=== PATIENT | female | born 1995 | race Caucasian/White ===

== ENCOUNTER 2018-04-23 19:03 | Outpatient (CLI) | payer OTHER ==
[2018-04-23] MEDS ORDERED: ACETAMINOPHEN IV (For NPO) 1,000 MG in EMPTY BAG 1 BAG IVPB STA (19:23)
[2018-04-23] MEDS ORDERED: LACTATED RINGERS 1,000 ML IV SCH (19:30)
[2018-04-23 19:37] LABS: Appearance,Urine Clear (Clear); Bilirubin,Urine Negative (Negative); Blood,Urine Negative (Negative); Color,Urine Light Yellow; Glucose,Urine (UA) Negative (Negative); Ketones,Urine Negative (Negative); Leukocyte Esterase,Urine Negative (Negative); Nitrite,Urine Negative (Negative); Protein,Urine Negative (Negative); Specific Gravity,Urine 1.009 (1.001-1.035); Urobilinogen,Urine <2.0 mg/dL (<2.0)
[2018-04-23 21:53] VITALS: BP 131/72; PULSE 116; RESP 16; TEMP 97.9
--- NOTE | 2018-06-20 09:38 | P.MSEPDOC ---
Presenting Problems - Arrival Data Date of Arrival on Unit: 04/23/18 Time of Arrival on Unit: 19:03 Mode of Transport: Ambulatory Vital Signs - Temperature Temperature: 97.9 F Temperature Source: Temporal Artery Scan - Pulse Right Brachial Pulse Rate: 116 Pulse Assessment Method: Automatic Cuff - Respirations Respiratory Rate: 16 Oxygen Delivery Method: Room Air O2 Sat by Pulse Oximetry: 97 - Blood Pressure Right Arm Blood Pressure: 131/72 Blood Pressure Mean: 91 Blood Pressure Source: Automatic Cuff Medical Screen Scoring (Post) - Cervical Exam Dilation: Exam Deferred Effacement: Exam Deferred Membranes: Intact - Uterine Contractions Frequency: N/A Duration: N/A Intensity: N/A - Maternal Vital Signs Maternal Temperature: N/A Maternal Respirations: N/A - Maternal Trauma Maternal Trauma: N/A - Assessment Heart Rate: 140 Heart Rate - NICHD Category: Category I (Normal) = 0 NST: Reactive Position: N/A - Total Score Total Score (Post): 0 - Post Treatment Level of Risk Post Treatment Level of Risk: Low (0-5) Physician Notification (Post) - Physician Notified Physician Notified Date: 04/23/18 Physician Notified Time: 19:21 Spoke With: Rodolfo New Order Received: Yes - Notification Comment Comment: UA sent, pt to follow up with Dr. White tomorrow as scheduled. Script for maternity belt given. Disposition - Disposition OB Disposition: Discharge to home, Written follow up instructions reviewed Discharge Date: 04/23/18 Discharge Time: 21:23 I agree with the RN Medical Screening Exam: Yes Risk & Benefit of care provided described in d/c instruction: Yes Diagnosis: UNSPECIFIED ABDOMINAL PAIN
== END 2018-04-23 21:23 | disposition home or self-care (01) ==
LOC: FBPOP 19:03
PROVIDERS: ATTEND Obstetrics & Gynecology Obstetrics
DX: O99.89 Other specified diseases and conditions complicating pregnancy, childbirth and the puerperium (principal); R10.9 Unspecified abdominal pain; Z3A.00 Weeks of gestation of pregnancy not specified
CPT/HCPCS: 99214; 96361; 96365; 81003; J0131

== ENCOUNTER 2018-06-24 11:45 | Outpatient (CLI) | payer OTHER ==
[2018-06-24 12:10] VITALS: BP 119/56; PULSE 108; RESP 16; TEMP 97
--- NOTE | 2018-07-01 09:49 | P.MSEPDOC ---
Presenting Problems - Arrival Data Date of Arrival on Unit: 06/24/18 Time of Arrival on Unit: 11:35 Mode of Transport: Ambulatory - Complaint OB-Reason for Admission/Chief Complaint: Vaginal Bleeding, Pain Medical History - Information : 2 Para: 1 Term: 1 : 0 Abortions: Spontaneous or Elective: 1 Number of Living Children: 1 - Gestational Age Gestational Age by CARLOS (wks/days): 36 Weeks and 3 Days Review of Systems - Review of Systems Constitutional: No problems Breast: No problems ENT: No problems Cardiovascular: No problems Respiratory: No problems Gastrointestinal: No problems Genitourinary: No problems Musculoskeletal: No problems Neurological: No problems Skin: No problems Vital Signs - Temperature Temperature: 97.0 F Temperature Source: Oral - Pulse Pulse Oximetery Pulse Rate: 108 Pulse Assessment Method: Automatic Cuff - Respirations Respiratory Rate: 16 - Blood Pressure Right Arm Sitting Blood Pressure: 119/56 Blood Pressure Mean: 77 Blood Pressure Source: Automatic Cuff Medical Screen Scoring (Pre) - Cervical Exam Dilation: Exam Deferred Effacement: Exam Deferred Membranes: Intact - Uterine Contractions Frequency: > 5 minutes apart = 1 Duration: N/A Intensity: N/A - Maternal Vital Signs Maternal Temperature: N/A Maternal Blood Pressure: N/A Signs of Preeclampsia: N/A Maternal Respirations: N/A - Pain Assessment Pain Location and Character: Left, Lower, Abdomen Pain Scale Used: Numeric (1 - 10) Pain Intensity: 5 Pain Description: *Acute, Cramping Pain Frequency: Intermittent Pain Duration: 1 Pain Duration Units: Minutes Pain Behavior: None Exhibited Pain Aggravating Factors: None Non-Pharmacological Interventions: Distraction, Emotional/Spiritual Support, Environmental Control - Maternal Trauma Maternal Trauma: N/A - Assessment Baseline FHR: 155 Heart Rate - NICHD Category: Category I (Normal) = 0 NST: Reactive Position: N/A Station: N/A - Total Score Total Score (Pre): 1 - Level of Risk Level of Risk: Low (0-5) Medical Screen Scoring (Post) - Cervical Exam Dilation: 1-3 cm = 1 Membranes: Intact - Uterine Contractions Frequency: > 5 minutes apart = 1 Duration: > 40 seconds = 2 - Maternal Vital Signs Maternal Temperature: N/A Maternal Blood Pressure: N/A Signs of Preeclampsia: N/A Maternal Respirations: N/A - Pain Assessment Pain Location and Character: Left, Lower, Abdomen Pain Scale Used: Numeric (1 - 10) Pain Intensity: 5 Pain Description: *Acute, Cramping Pain Radiation Location: no Pain Frequency: Intermittent Pain Duration: 1 Pain Duration Units: Minutes Pain Behavior: None Exhibited Pain Aggravating Factors: None Non-Pharmacological Interventions: Distraction, Emotional/Spiritual Support, Environmental Control, Reduce Environmental Stimuli - Maternal Trauma Maternal Trauma: N/A - Assessment Heart Rate: 155 Heart Rate - NICHD Category: Category I (Normal) = 0 NST: Reactive Position: N/A Station: N/A - Total Score Total Score (Post): 4 - Post Treatment Level of Risk Post Treatment Level of Risk: Low (0-5) Physician Notification (Post) - Physician Notified Physician Notified Date: 06/24/18 Physician Notified Time: 12:25 Physician/Practitioner Notified:: Dr White Spoke With: Dr White New Order Received: Yes Disposition - Disposition OB Disposition: Physician follow up in office, Discharge to home, Written follow up instructions reviewed Discharge Date: 06/24/18 Discharge Time: 12:35 I agree with the RN Medical Screening Exam: Yes Risk & Benefit of care provided described in d/c instruction: Yes Diagnosis: FALSE LABOR BEFORE 37 COMPLETED WEEKS OF GEST, THIRD TRI
== END 2018-06-24 12:35 | disposition home or self-care (01) ==
LOC: FBPOP 11:45
PROVIDERS: ATTEND Obstetrics & Gynecology
DX: O47.03 False labor before 37 completed weeks of gestation, third trimester (principal); Z3A.36 36 weeks gestation of pregnancy
CPT/HCPCS: 59025; 99213

== ENCOUNTER 2018-07-16 05:58 | Inpatient (IN) | payer BC, OTHER ==
[2018-07-16] MEDS ORDERED: METHYLERGONOVINE 0.2 MG/ML 1 ML AMP IM PRN (06:04)
[2018-07-16] MEDS ORDERED: OXYTOCIN 10 UNIT/ML 1 ML VIAL IM PRN (06:04)
[2018-07-16] MEDS ORDERED: CARBOPROST TROMETHAMINE 250 MCG/ML 1 ML AMP IM PRN (06:04)
[2018-07-16] MEDS ORDERED: TERBUTALINE 1 MG/ML VIAL SQ PRN (06:04)
[2018-07-16] MEDS ORDERED: LIDOCAINE 0.5% (PF) 5 MG/ML (50 ML SDV) SQ PRN (06:04)
[2018-07-16 06:09] VITALS: BMI 30.9
[2018-07-16] MEDS: LACTATED RINGERS 1,000 ML IV SCH ×2 (06:11→09:55)
[2018-07-16] MEDS ORDERED: OXYTOCIN 20 UNITS/1000 ML NS 1,000 ML IV SCH (06:15)
[2018-07-16] MEDS ORDERED: LACTATED RINGERS 1,000 ML IV SCH (06:15)
[2018-07-16 06:23] LABS: Basophils % (A) 0 %; Eosinophils # (A) 0.1 k/uL (0-0.7); Eosinophils % (A) 1 %; HCT 35.1 % (34.0-46.0); HGB 11.7 gm/dL (11.4-16.0); Lymphocytes % (A) 20 %; MCH 28.6 pg (25.0-35.0); MCHC 33.4 g/dL (31.0-37.0); MCV 85.4 fL (80.0-100.0); Mean Platelet Volume 8.6; Monocytes # (A) 0.5 k/uL (0-1.0); Monocytes % (A) 5 %; Neutrophils # (A) 7.3 k/uL (1.3-7.7); Neutrophils % (A) 72 %; Platelet Count 172 k/uL (150-450); RDW 13.4 % (11.5-15.5); WBC 10.3 k/uL (3.8-10.6)
[2018-07-16] MEDS ORDERED: PENICILLIN G POTASSIUM 5,000,000 UNIT in DEXTROSE 5% IN WATER 100 ML IVPB STA ×2 (07:45)
--- NOTE | 2018-07-16 07:48 | P.HPOB ---
History of Present Illness H&P Date: 07/16/18 This is a 22-year-old white female 2 para 1001 EDC 07/18/2018 at 39-5/7 weeks. Patient presents today for induction with favorable multiparous cervix. Fetus has been active. She states she believes she broke her water at 3:00 this morning, clear fluid. She is having mild uterine contractions at this time. Past medical history is negative. Past surgical history is significant for tonsillectomy, wisdom teeth extraction. Current medications vitamins daily. ALLERGIES none known. Family history is unremarkable. Past obstetric history significant for normal spontaneous vaginal delivery of liveborn male infant in 2014, 7 lbs. 4 oz. Social history patient is , boyfriend is involved in the . She denies tobacco alcohol or drug use. history is significant for blood type O+, rubella status immune. Positive group B strep in the urine. Hepatitis B surface antigen, HIV testing, urine culture, gonorrhea and reculture of chlamydia all negative. One-hour Glucola 109. Ultrasound significant for a succenturiate anterior lobe on a posterior placenta. On exam this is a pleasant white female, 5 foot 5 inches, 186 pounds, blood pressure 145/79 and admission, patient is afebrile. The general physical exam is within normal limits. Cervix is 3 cm dilated, 60% effaced, -2 station, vertex presentation. Artificial amniorrhexis of a large 4 bag reveals clear fluid. heart rate is in the 140s with frequent accelerations, consistent with reactive NST. Contractions are occurring approximately every 6 minutes apart of mild intensity. Impression: 39-5/7 weeks intrauterine , positive group B strep in the urine noted, succenturiate lobe on the placenta also noted. Here for induction of labor, all signs currently reassuring. Plan continue oxytocin per hospital protocol. Continue close maternal and surveillance. Antibiotics for group B strep protocol. Special attention to the second stage of labor for Satellite lobe of placenta. Anticipate normal spontaneous vaginal delivery. Review of Systems Constitutional: Reports as per HPI Past Medical History Past Medical History: No Reported History History of Any Multi-Drug Resistant Organisms: None Reported Past Surgical History: No Surgical Hx Reported Past Anesthesia/Blood Transfusion Reactions: Postoperative Nausea & Vomiting ( PONV) Past Psychological History: No Psychological Hx Reported Smoking Status: Never smoker Past Alcohol Use History: None Reported Past Drug Use History: None Reported - Past Family History Mother Family Medical History: No Reported History Medications and Allergies Home Medications Medication Instructions Recorded Confirmed Type Pnv No.95/Ferrous Fum/Folic AC 1 tab PO DAILY 06/24/18 07/16/18 History [ Multivitamin Tablet] Allergies Allergy/AdvReac Type Severity Reaction Status Date / Time No Known Allergies Allergy Verified 06/24/18 11:58 Exam Vital Signs Temp Pulse Resp BP 07/16/18 06:04 98.3 F 113 H 18 145/79 Intake and Output 07/15/18 07/16/18 07/16/18 22:59 06:59 14:59 Other: Weight 84.368 kg As per HPI please Results Result Diagrams: 07/16/18 06:15 Assessment and Plan Assessment: 39-5/7 weeks intrauterine , here for induction of labor. Positive group B strep status. Succenturiate lobe placenta noted. All signs currently reassuring. Plan: Again, close maternal and surveillance. Oxytocin per hospital protocol. Penicillin G per protocol. Anticipate normal spontaneous vaginal delivery. Time with Patient: Less than 30
[2018-07-16] MEDS ORDERED: ROPIVACAINE 100 MG, fentaNYL (PF) 200 MCG in SODIUM CHLORIDE 0.9% 76 ML EPIDURAL ONE (10:36)
[2018-07-16] MEDS: PENICILLIN G POTASSIUM 2,500,000 UNIT in DEXTROSE 5% IN WATER 100 ML IVPB SCH ×4 (12:28→17:09)
[2018-07-16] MEDS ORDERED: BENZOCAINE/MENTHOL SPRAY 1 GM/SPRAY AEROSOL TOPICAL PRN (13:44)
[2018-07-16] MEDS ORDERED: diphenhydrAMINE 50 MG CAP PO PRN (13:44)
[2018-07-16] MEDS ORDERED: diphenhydrAMINE 50 MG/ML 1 ML VIAL IVP PRN ×2 (13:44)
[2018-07-16] MEDS ORDERED: ZOLPIDEM 5 MG TAB PO PRN (13:44)
[2018-07-16] MEDS ORDERED: ACETAMINOPHEN TAB 325 MG TAB PO PRN (13:44)
[2018-07-16] MEDS ORDERED: LANOLIN CREAM 5 GM TUBE TOPICAL PRN (13:44)
[2018-07-16] MEDS ORDERED: SIMETHICONE 80 MG CHEWABLE PO PRN (13:44)
[2018-07-16] MEDS ORDERED: HYDROCORTISONE 2.5% RECTAL CREAM 30 GM TUBE RECTAL PRN (13:44)
[2018-07-16] MEDS ORDERED: diphenhydrAMINE 25 MG CAP PO PRN (13:44)
[2018-07-16] MEDS ORDERED: WITCH HAZEL 1 EACH MED..PAD TOPICAL PRN (13:44)
--- NOTE | 2018-07-16 13:44 | P.PROBDLV ---
Vaginal Delivery Note - . Vaginal Delivery Note: This is a 22-year-old white female 2 para 1001 EDC 07/18/2018 at 39-5/7 weeks' gestation. Patient presents for induction with favorable cervix. She believes her water broke at 02 100 this morning, clear fluid. Amnio sure testing was positive in the triage area. remarkable for group B strep positive, blood type O positive, rubella status immune. Please see admitting history and physical for details. Patient was admitted, artificial amniorrhexis of a fore bag revealed clear fluid with vernix. heart tones were reassuring throughout the first and second stages of labor. Antibiotics were given for history of positive group B strep culture in the urine. Patient requested and received an epidural. She progressed well through the first stage of labor and was judged to be completely dilated. Perineal body was prepped and draped in the second stage of labor commenced. With excellent maternal expulsive efforts, for 22 minutes, the patient pushed. Ultimately the head delivered occiput anterior and restituted accordingly. There was no nuchal cord noted. The right or anterior shoulder was delivered from underneath the pubic symphysis at which time the oropharynx, nasopharynx, and external nares were all bulb suctioned on the perineal body. Patient was officially delivered of a liveborn male at 1321 hrs. Umbilical cord was doubly clamped and ligated, he was handed to waiting nurses for evaluation where scores of 9 and 9 at one and 5 minutes respectively were given. Uterus is massaged. Placenta delivers spontaneously, at 1327 hours. It is noted to be intact, succenturiate lobe is identified. It is sent to pathology for evaluation. Uterus is massaged. Inspection of the cervix, vagina, perineum , periurethral, and perirectal areas revealed no lacerations and no defects. No suturing material was deemed necessary. All sponge needle and enhancement counts are correct at the end of the procedure. weighs 8 lbs. 8 oz. or 3865 g. Patient and her are requesting circumcision further son.
[2018-07-16] MEDS: SENNOSIDES-DOCUSATE SODIUM 1 EACH TAB PO SCH (20:16)
[2018-07-17] MEDS: IBUPROFEN 600 MG TAB PO PRN ×2 (04:10→10:10)
[2018-07-17 07:39] VITALS: BP 127/70; PULSE 91; RESP 17; TEMP 98
--- NOTE | 2018-07-17 07:47 | P.DS ---
Providers Date of admission: 07/16/18 05:58 Expected date of discharge: 07/17/18 Attending physician: Jacy White Primary care physician: [facility] Course: This is a 22-year-old white female 2 para 1001 EDC 07/18/2018 at 39-5/7 weeks' gestation. Patient presented for induction with favorable cervix. Group B strep positive in the urine. Blood type O positive, rubella status immune. Please see my dictated history and physical for details. Artificial amniorrhexis revealed clear fluid. Penicillin G was given, 2 units total. Epidural was placed per her request. Patient went on to deliver vaginally a liveborn male with scores of 9 and 9 at one and 5 minutes respectively. Infant weighed 3865 g or 8 lbs. 8 oz. She did well, estimated blood loss 300 mL's. No suturing was deemed necessary of the perineal body. Please see my dictated delivery note for details. This morning the patient is doing well. She is voiding, ambulating and passing flatus without difficulty. She is afebrile and the fundus is firm, nontender, midline. Pulse is 91. Extremities reveal +1 edema. Chest is clear in all leonard. Breasts are not engorged. [place] is doing well. Circumcision has been performed. Patient is being discharged home today in very good condition. She will follow- up in the office with me in 6 weeks. I have reminded her no intercourse, tampons or douching. We have briefly discussed options for contraception and we will discuss this further in the office. She will continue taking her vitamin daily. I have given her a prescription for a double electric breast pump per her request. She will call with any fevers shakes or chills, foul smelling or copious lochia, with any large blood clots, with any pain not alleviated by [id number] Motrin Advil or Aleve, or indeed with any concerns. Patient Condition at Discharge: Good Plan - Discharge Summary Discharge Rx Participant: No New Discharge Prescriptions: No Action Pnv No.95/Ferrous Fum/Folic AC [ Multivitamin Tablet] 1 tab PO DAILY Discharge Medication List Pnv No.95/Ferrous Fum/Folic AC [ Multivitamin Tablet] 1 tab PO DAILY [History] Follow up Appointment(s)/Referral(s): Jacy White MD [STAFF PHYSICIAN] - 6 Weeks Discharge Disposition: HOME SELF-CARE
[2018-07-17 08:10] LABS: Basophils % (A) 0 %; Eosinophils % (A) 0 %; Lymphocytes # (A) 1.7 k/uL (1.0-4.8); Lymphocytes % (A) 11 %; MCHC 33.4 g/dL (31.0-37.0); MCV 86.9 fL (80.0-100.0); Mean Platelet Volume 8.4; Monocytes # (A) 0.6 k/uL (0-1.0); Monocytes % (A) 4 %; Neutrophils % (A) 84 %; Platelet Count 152 k/uL (150-450); RBC 3.34 m/uL (3.80-5.40); RDW 13.6 % (11.5-15.5); WBC 15.5 k/uL (3.8-10.6)
[2018-07-17 08:11] LABS: HGB 9.7 gm/dL (11.4-16.0)
[2018-07-17] MEDS: SENNOSIDES-DOCUSATE SODIUM 1 EACH TAB PO SCH (09:53)
== END 2018-07-17 14:45 | disposition home or self-care (01) | DRG 807 ==
LOC: 4FBP 05:58
PROVIDERS: ADMIT Obstetrics & Gynecology; ATTEND Obstetrics & Gynecology
PROC: 10E0XZZ Delivery of Products of Conception, External Approach (ICD-10-PCS; principal; 2018-07-16)
PROC: 00HU33Z Insertion of Infusion Device into Spinal Canal, Percutaneous Approach (ICD-10-PCS; 2018-07-16)
PROC: 3E0R3BZ Introduction of Anesthetic Agent into Spinal Canal, Percutaneous Approach (ICD-10-PCS; 2018-07-16)
PROC: 10907ZC Drainage of Amniotic Fluid, Therapeutic from Products of Conception, Via Natural or Artificial Opening (ICD-10-PCS; 2018-07-16)
PROC: 3E033VJ Introduction of Other Hormone into Peripheral Vein, Percutaneous Approach (ICD-10-PCS; 2018-07-16)
DX: O99.824 Streptococcus B carrier state complicating childbirth (principal); O43.193 Other malformation of placenta, third trimester; Z37.0 Single live birth; Z3A.39 39 weeks gestation of pregnancy
CPT/HCPCS: 85025; 86850; 86900; 86901; 88307

== ENCOUNTER 2020-01-16 20:57 | Emergency (ER) | payer BC, OTHER ==
[2020-01-16 21:02] VITALS: RESP 18
[2020-01-16 21:57] LABS: Appearance,Urine Cloudy (Clear); Bilirubin,Urine Negative (Negative); Blood,Urine Large (Negative); Color,Urine Yellow; Glucose,Urine (UA) Negative (Negative); Ketones,Urine Negative (Negative); Leukocyte Esterase,Urine Moderate (Negative); Mucus,Urine Rare /hpf; Nitrite,Urine Negative (Negative); PH, Urine 6.5 (5.0-8.0); Protein,Urine Trace (Negative); RBC,Urine 102 /hpf (0-5); Specific Gravity,Urine 1.022 (1.001-1.035); Squamous Epithelial Cell,Urine 10 /hpf (0-4); Urobilinogen,Urine <2.0 mg/dL (<2.0); WBC,Urine 8 /hpf (0-5)
--- NOTE | 2020-01-16 22:27 | ED ---
Female Urogenital HPI - General Chief complaint: Vaginal Bleeding Stated complaint: Cramping/bleeding 5-6wks preg Time Seen by Provider: 01/16/20 21:12 Source: patient Mode of arrival: ambulatory Limitations: no limitations - History of Present Illness Initial comments: patient is a 24-year-old female presenting to emergency Department with complaints of vaginal bleeding and cramping since yesterday. She is currently 5 to 6 weeks , she had 2 positive tests at home. She is . Her [employer] is Dr. White. She states she had some mild bleeding that started yesterday but it has been continuous throughout today. She is also having some lower abdominal cramping. She denies any recent fever or chills. She denies history of abdominal surgeries. She admits to some mild nausea but no vomiting, no diarrhea. She denies chest pain or shortness of breath. She has no further complaints at this time. Upon arrival to the ER, her vital signs are stable. - Related Data Home Medications Medication Instructions Recorded Confirmed Pnv No.95/Ferrous Fum/Folic AC 1 tab PO DAILY 06/24/18 07/16/18 [ Multivitamin Tablet] Allergies Allergy/AdvReac Type Severity Reaction Status Date / Time No Known Allergies Allergy Verified 01/16/20 21:02 Review of Systems ROS Statement: Those systems with pertinent positive or pertinent negative responses have been documented in the HPI. ROS Other: All systems not noted in ROS Statement are negative. Past Medical History Past Medical History: No Reported History History of Any Multi-Drug Resistant Organisms: None Reported Past Surgical History: No Surgical Hx Reported Past Anesthesia/Blood Transfusion Reactions: Postoperative Nausea & Vomiting (PONV) Past Psychological History: No Psychological Hx Reported Past Alcohol Use History: None Reported Past Drug Use History: None Reported - Past Family History Mother Family Medical History: No Reported History General Exam - General Exam Comments Initial Comments: GENERAL: Patient is well-developed and well-nourished. Patient is nontoxic and in no acute distress. HEAD: Atraumatic, normocephalic. EYES: Pupils equal round and reactive to light, extraocular movements intact, sclera anicteric, conjunctiva are normal. Eyelids were unremarkable. ENT: TMs normal, nares patent, oropharynx clear without exudates. Moist mucous membranes. NECK: Normal range of motion, supple without lymphadenopathy or JVD. LUNGS: Unlabored respirations. Breath sounds clear to auscultation bilaterally and equal. No wheezes rales or rhonchi. HEART: Regular rate and rhythm without murmurs, rubs or gallops. ABDOMEN: Mild pain with palpation of the lower abdomen. Soft, normoactive bowel sounds. No guarding, no rebound. No masses appreciated. :Declined vaginal exam. MUSCULOSKELETAL: Normal extremities with adequate strength and normal range of motion, no pitting or edema. No clubbing or cyanosis. NEUROLOGICAL: Normal speech, normal gait. PSYCH: Normal mood, normal affect. SKIN: Warm, Dry, normal turgor, no rashes or lesions noted. Limitations: no limitations Course Vital Signs 01/16/20 20:59 Temperature 98.2 F Pulse Rate 69 Respiratory 18 Rate O2 Sat by Pulse 100 Oximetry Medical Decision Making - Medical Decision Making patient is a 24-year-old female here for vaginal bleeding and cramping that started yesterday. She believes she is 5-6 weeks . Patient is declining all blood work including beta hCG levels,as well as a vaginal exam. S he only wanted an ultrasound. She is . [employer] is Dr. White. Patient's urine did show significant blood, urine hCG was not detected. ultrasound shows no evidence of IUP, and her uterus was empty, no signs of ectopic, no other abnormality seen. I discussed these findings with the patient. She will follow-up with her doctor. She may take Tylenol or Motrin for discomfort. She is agreement with this plan of care. She is stable for discharge. Return parameters were discussed with the patient she verbalized understanding. Case discussed with Dr. Mccray. - Lab Data Lab Results 01/16/20 01/16/20 Range/Units 21:47 21:47 Urine Color Yellow Urine Appearance Cloudy H (Clear) Urine pH 6.5 (5.0-8.0) Ur Specific [place] 1.022 (1.001-1.035) Urine Protein Trace H (Negative) Urine Glucose (UA) Negative (Negative) Urine Ketones Negative (Negative) Urine Blood Large H (Negative) Urine Nitrite Negative (Negative) Urine Bilirubin Negative (Negative) Urine Urobilinogen <2.0 (<2.0) mg/dL Ur Leukocyte Esterase Moderate H (Negative) Urine RBC 102 H (0-5) /hpf Urine WBC 8 H (0-5) /hpf Ur Squamous Epith Cells 10 H (0-4) /hpf Urine Mucus Rare H (None) /hpf Urine HCG, Qual Not Detected (Not Detectd) Disposition Clinical Impression: Vaginal bleeding, Bilateral lower abdominal cramping Disposition: HOME SELF-CARE Condition: Stable Instructions (If sedation given, give patient instructions): Dysfunctional Uterine Bleeding (ED) Additional Instructions: Please return to the Emergency Department if symptoms worsen or any other concerns. Follow-up with PCP and/or [employer]. Is patient prescribed a controlled substance at d/c from ED?: No Referrals: Casper Verma MD [Primary Care Provider] - 1-2 days
--- NOTE | 2020-01-16 22:31 | US ---
EXAMINATION TYPE: Transabdominal DATE OF EXAM: 01/16/2020 10:21 PM COMPARISON: NONE CLINICAL HISTORY: bleeding, cramping. bleeding, cramping EXAM PERFORMED: Transvaginal (TV) and Transabdominal (TA) EXAM MEASUREMENTS: GESTATIONAL AGE / DATING Dates by LMP: (6 weeks/0 days) EDC: 09/10/2020 Dates by First Scan: No previous this is first scan Dates by Current Scan for: No IUP seen at this time MATERNAL ANATOMY Uterus: 7.8 x 5.0 x 4.5 cm Right Ovary: 3.6 x 2.2 x 1.4 cm Left Ovary: 3.3 x 1.1 x 1.8 cm Post CDS / Adnexa: free fluid seen in left adnexa Presence of free fluid: left adnexa Presence of corpus luteal cyst: no GESTATION / SURVEY IUP: No IUP seen at this time Date of LMP: 12/04/2020, Beta HcG (if available): URINE HCG- not detected No GS, YS or CRL visualized. IMPRESSION: The uterus is empty. No adnexal mass. No sign of ectopic . Tiny amount of fluid near the lef t ovary of uncertain significance.
[2020-01-16 23:02] VITALS: BP 127/74; PULSE 75; TEMP 97.9
== END 2020-01-16 22:49 | disposition home or self-care (01) ==
LOC: EC 20:57
DX: N93.9 Abnormal uterine and vaginal bleeding, unspecified (principal); Z32.02 Encounter for pregnancy test, result negative
CPT/HCPCS: 76801; 76817; 81001; 81025; 99284

== ENCOUNTER 2020-08-16 09:44 | Emergency (ER) | payer BC, OTHER ==
--- NOTE | 2020-08-16 10:24 | ED ---
General Adult HPI - General Chief complaint: Arrhythmia/Palpitations Stated complaint: tachycardia/fever Time Seen by Provider: 08/16/20 10:05 Source: patient Mode of arrival: ambulatory Limitations: no limitations - History of Present Illness Initial comments: Patient is a 24-year-old female, currently 24 weeks , presenting to the emergency Department with complaints of elevated heart rate that started intermittent over the past week. Patient denies any cough, congestion, shortness of breath, no chest pains, no fevers. Patient states when she had her normal OB visit last week and Dr. White's office, her temperature was 99.0. She has been eating and drinking as normal, no abdominal pain, no vaginal bleeding. She states her heart rate normally runs in the 90s, she does have history of anxiety. This is patient's third . Patient has no cardiac history, no history of blood clots, no recent travel. Patient was told to come to the hospital however cannot go to mother baby due to have a low-grade temperature. Patient's temperature is normal today. She has no further complaints. - Related Data Home Medications Medication Instructions Recorded Confirmed Pnv No.95/Ferrous Fum/Folic AC 1 tab PO HS 06/24/18 08/16/20 [ Multivitamin Tablet] Allergies Allergy/AdvReac Type Severity Reaction Status Date / Time No Known Allergies Allergy Verified 08/16/20 10:44 Review of Systems ROS Statement: Those systems with pertinent positive or pertinent negative responses have been documented in the HPI. ROS Other: All systems not noted in ROS Statement are negative. Past Medical History Past Medical History: No Reported History History of Any Multi-Drug Resistant Organisms: None Reported Past Surgical History: No Surgical Hx Reported Past Anesthesia/Blood Transfusion Reactions: Postoperative Nausea & Vomiting (PONV) Past Psychological History: No Psychological Hx Reported Smoking Status: Never smoker Past Alcohol Use History: None Reported Past Drug Use History: None Reported - Past Family History Mother Family Medical History: No Reported History General Exam - General Exam Comments Initial Comments: GENERAL: Patient is well-developed and well-nourished. Patient is nontoxic and in no acute distress. HEAD: Atraumatic, normocephalic. EYES: Pupils equal round and reactive to light, extraocular movements intact, sclera anicteric, conjunctiva are normal. Eyelids were unremarkable. ENT: TMs normal, nares patent, oropharynx clear without exudates. Moist mucous membranes. NECK: Normal range of motion, supple without lymphadenopathy or JVD. LUNGS: Unlabored respirations. Breath sounds clear to auscultation bilaterally and equal. No wheezes rales or rhonchi. HEART: Regular rate and rhythm without murmurs, rubs or gallops. ABDOMEN: Soft, nontender, normoactive bowel sounds. No guarding, no rebound. No masses appreciated. : Deferred MUSCULOSKELETAL: Normal extremities with adequate strength and normal range of motion, no pitting or edema. No clubbing or cyanosis. NEUROLOGICAL: Patient is alert and oriented x 3. Motor and sensory are also intact. Cranial nerves II through XII grossly intact. Symmetrical smile. Normal speech, normal gait. PSYCH: Normal mood, normal affect. SKIN: Warm, Dry, normal turgor, no rashes or lesions noted. Limitations: no limitations Course Vital Signs 08/16/20 08/16/20 09:51 11:22 Temperature 98.0 F 97.8 F Pulse Rate 113 H 94 Respiratory 20 16 Rate Blood Pressure 129/71 113/67 O2 Sat by Pulse 100 99 Oximetry EKG Findings - EKG Comments: EKG Findings:: Normal sinus rhythm, nonspecific T-wave abnormalities, no signs of acute ischemia. Ventricular rate 100, IN interval 128, QT 322. Medical Decision Making - Medical Decision Making Patient is a 24-year-old female, currently 24 weeks , presenting for elevated heart rates and intermittent over the past 3 days. No fevers. The patient was sent down here for mother baby secondary to low-grade temperature last week. Her temperature is normal today. Patient refused a covid swab. She is also refusing IV. Check basic labs which were normal, TSH was also normal range. EKG showed no acute process, checks her sed rate is normal. I did speak with Dr. White and as long as patient's heart rate was below 100 and her TSH was normal, pt was able to be discharged home and outpatient follow-up with Dr. White. On reexamination, heart rate is 94, patient is having no symptoms at thi s time. I discussed these findings with her.Patient is stable for discharge. Patient is in agreement with this plan of care. Return parameters were discussed with the patient and they verbalized understanding. Case discussed with Dr. Mccray. - Lab Data Result diagrams: 08/16/20 10:27 08/16/20 10:27 Lab Results 08/16/20 08/16/20 08/16/20 Range/Units 10:27 10:27 10:27 WBC 11.7 H (3.8-10.6) k/uL RBC 4.49 (3.80-5.40) m/uL Hgb 13.6 (11.4-16.0) gm/dL Hct 39.9 (34.0-46.0) % MCV 88.7 (80.0-100.0) fL MCH 30.3 (25.0-35.0) pg MCHC 34.2 (31.0-37.0) g/dL RDW 12.3 (11.5-15.5) % Plt Count 189 (150-450) k/uL MPV 8.1 Neutrophils % 81 % Lymphocytes % 13 % Monocytes % 4 % Eosinophils % 1 % Basophils % 0 % Neutrophils # 9.5 H (1.3-7.7) k/uL Lymphocytes # 1.5 (1.0-4.8) k/uL Monocytes # 0.4 (0-1.0) k/uL Eosinophils # 0.1 (0-0.7) k/uL Basophils # 0.0 (0-0.2) k/uL Sodium 135 L (137-145) mmol/L Potassium 4.4 (3.5-5.1) mmol/L Chloride 105 (98-107) mmol/L Carbon Dioxide 22 (22-30) mmol/L Anion Gap 8 mmol/L BUN 8 (7-17) mg/dL Creatinine 0.51 L (0.52-1.04) mg/dL Est GFR (CKD-EPI)AfAm >90 (>60 ml/min/1.73 sqM) Est GFR (CKD-EPI)NonAf >90 (>60 ml/min/1.73 sqM) Glucose 87 (74-99) mg/dL Calcium 9.5 (8.4-10.2) mg/dL Total Bilirubin 0.3 (0.2-1.3) mg/dL AST 14 (14-36) U/L ALT 10 (4-34) U/L Alkaline Phosphatase 59 (38-126) U/L Total Protein 6.4 (6.3-8.2) g/dL Albumin 3.6 (3.5-5.0) g/dL TSH 1.230 (0.465-4.680) mIU/L Disposition Clinical Impression: Tachycardia Disposition: HOME SELF-CARE Condition: Stable Instructions (If sedation given, give patient instructions): Heart Palpitations (ED) Additional Instructions: Please return to the Emergency Department if symptoms worsen or any other concerns. Labs and chest x-ray today were normal. Please follow-up with your [facility] as discussed. Is patient prescribed a controlled substance at d/c from ED?: No Referrals: Casper Verma MD [Primary Care Provider] - 1-2 days Jacy White MD [STAFF PHYSICIAN] - 1-2 days
[2020-08-16 10:47] LABS: Basophils % (A) 0 %; Eosinophils # (A) 0.1 k/uL (0-0.7); Eosinophils % (A) 1 %; HCT 39.9 % (34.0-46.0); HGB 13.6 gm/dL (11.4-16.0); Lymphocytes # (A) 1.5 k/uL (1.0-4.8); Lymphocytes % (A) 13 %; MCH 30.3 pg (25.0-35.0); MCHC 34.2 g/dL (31.0-37.0); MCV 88.7 fL (80.0-100.0); Mean Platelet Volume 8.1; Monocytes # (A) 0.4 k/uL (0-1.0); Monocytes % (A) 4 %; Neutrophils # (A) 9.5 k/uL (1.3-7.7); Neutrophils % (A) 81 %; Platelet Count 189 k/uL (150-450); RBC 4.49 m/uL (3.80-5.40); RDW 12.3 % (11.5-15.5); WBC 11.7 k/uL (3.8-10.6)
--- NOTE | 2020-08-16 10:52 | XR ---
EXAMINATION TYPE: XR chest 2V DATE OF EXAM: 08/16/2020 COMPARISON: NONE HISTORY: Late second trimester with tachycardia. TECHNIQUE: Frontal and lateral views of the chest are obtained. FINDINGS: There is no focal air space opacity, pleural effusion, or pneumothorax seen. The cardiac silhouette size is within normal limits. The osseous structures are intact. IMPRESSION: No acute cardiopulmonary process.
[2020-08-16 10:56] LABS: ALT 10 U/L (4-34); AST 14 U/L (14-36); African American GFR (CKD) >90 (>60 ml/min/1.73 sqM); Albumin 3.6 g/dL (3.5-5.0); Alkaline Phosphatase 59 U/L (38-126); Anion Gap 8 mmol/L; Blood Urea Nitrogen 8 mg/dL (7-17); Calcium 9.5 mg/dL (8.4-10.2); Carbon Dioxide 22 mmol/L (22-30); Chloride 105 mmol/L (98-107); Glucose 87 mg/dL (74-99); Non-African American GFR(CKD) >90 (>60 ml/min/1.73 sqM); Potassium 4.4 mmol/L (3.5-5.1); Sodium 135 mmol/L (137-145); Total Bilirubin 0.3 mg/dL (0.2-1.3); Total Protein 6.4 g/dL (6.3-8.2)
[2020-08-16 11:23] VITALS: BP 113/67; PULSE 94; RESP 16; TEMP 97.8
== END 2020-08-16 12:13 | disposition home or self-care (01) ==
LOC: EC 09:44
DX: O99.891 Other specified diseases and conditions complicating pregnancy (principal); R00.0 Tachycardia, unspecified; Z3A.24 24 weeks gestation of pregnancy
CPT/HCPCS: 36415; 71046; 80053; 84443; 85025; 93005; 99285

== ENCOUNTER 2020-12-06 09:29 | Inpatient (IN) | payer BC, OTHER ==
[2020-12-07] MEDS ORDERED: OXYTOCIN 10 UNIT/ML 1 ML VIAL IM PRN (06:32)
[2020-12-07] MEDS ORDERED: LIDOCAINE 0.5% (PF) 5 MG/ML (50 ML SDV) SQ PRN (06:32)
[2020-12-07] MEDS ORDERED: TERBUTALINE 1 MG/ML VIAL SQ PRN (06:32)
[2020-12-07] MEDS ORDERED: CARBOPROST TROMETHAMINE 250 MCG/ML 1 ML AMP IM PRN (06:32)
[2020-12-07] MEDS ORDERED: METHYLERGONOVINE 0.2 MG/ML 1 ML AMP IM PRN (06:32)
[2020-12-07] MEDS: LACTATED RINGERS 1,000 ML IV SCH ×2 (06:41→10:21)
[2020-12-07 06:42] LABS: Basophils % (A) 0 %; Eosinophils # (A) 0.1 k/uL (0-0.7); Eosinophils % (A) 1 %; HCT 37.4 % (34.0-46.0); HGB 12.4 gm/dL (11.4-16.0); Lymphocytes # (A) 2.2 k/uL (1.0-4.8); Lymphocytes % (A) 21 %; MCHC 33.1 g/dL (31.0-37.0); MCV 84.6 fL (80.0-100.0); Mean Platelet Volume 10.5; Monocytes # (A) 0.5 k/uL (0-1.0); Monocytes % (A) 5 %; Neutrophils # (A) 7.3 k/uL (1.3-7.7); Neutrophils % (A) 71 %; Platelet Count 178 k/uL (150-450); RBC 4.42 m/uL (3.80-5.40); RDW 13.9 % (11.5-15.5); WBC 10.3 k/uL (3.8-10.6)
[2020-12-07] MEDS ORDERED: OXYTOCIN 30 UNITS/500 ML NS 30 UNIT in SALINE 1 500ML.BAG IV SCH (06:45)
--- NOTE | 2020-12-07 08:10 | P.HPOB ---
History of Present Illness H&P Date: 12/07/20 Chief Complaint: Here for elective induction of labor, postdates This is a 25 year old white female 5 para 2012 EDC 12/06/2020 at 40 and one sevenths weeks' gestation. Patient presents today for induction, she is having spontaneous mild contractions. Fetus is been active throughout the . She denies vaginal bleeding or fluid leakage. Past medical history is significant for Chlamydia in 2018. Past surgical history tonsillectomy, wisdom teeth extracted. Current medications vitamins daily, baby aspirin daily. ALLERGIES, no known medical ALLERGIES. Social history patient is single, father of the baby is involved. She denies alcohol tobacco or drug use. Obstetric history is significant for blood type O+, rubella status immune. VDRL testing, hepatitis B surface antigen, HIV testing, group B strep cultures, gonorrhea and chlamydia cultures all negative. One-hour Glucola 92. On exam patient is 5 foot 5 inches, 187 pounds, blood pressure on admission 136/83, vital signs are stable and she is afebrile. General exam is within normal limits. Cervix is 3 cm dilated, 80% effaced, -2 station, vertex presentation. Artificial amniorrhexis reveals clear fluid. heart rate is consistent with reactive NST. Impression: 40 and one sevenths weeks intrauterine , here for elective induction of labor, all signs reassuring. Plan: Oxytocin per hospital protocol. Continue close maternal and surveillance. Analgesic options reviewed. Anticipate normal spontaneous vaginal delivery. Review of Systems Constitutional: Reports as per HPI Past Medical History Past Medical History: No Reported History History of Any Multi-Drug Resistant Organisms: None Reported Past Surgical History: Tonsillectomy Past Anesthesia/Blood Transfusion Reactions: Postoperative Nausea & Vomiting (PONV) Past Psychological History: No Psychological Hx Reported Smoking Status: Never smoker Past Alcohol Use History: None Reported Past Drug Use History: None Reported - Past Family History Mother Family Medical History: No Reported History Medications and Allergies Home Medications Medication Instructions Recorded Confirmed Type Pnv No.95/Ferrous Fum/Folic AC 1 tab PO HS 06/24/18 12/07/20 History [ Multivitamin Tablet] Allergies Allergy/AdvReac Type Severity Reaction Status Date / Time No Known Allergies Allergy Verified 12/07/20 06:22 Exam Vital Signs Temp Pulse Resp BP 12/07/20 06:25 96.9 F L 87 18 136/83 Intake and Output 12/06/20 12/07/20 12/07/20 22:59 06:59 14:59 Other: Weight 84.822 kg See dictation under HPI please Results Result Diagrams: 12/07/20 06:32 Assessment and Plan Assessment: 40 and one sevenths weeks intrauterine , here for induction of labor, favorable cervix, all signs reassuring. Plan: Continue close maternal and surveillance. Analgesic options reviewed. Anticipate normal spontaneous vaginal delivery. Time with Patient: Less than 30
[2020-12-07] MEDS ORDERED: fentaNYL (PF) 50 MCG/ML 5 ML AMP ONE (10:01)
[2020-12-07] MEDS ORDERED: ROPIVACAINE 5MG/ML 20ML VIAL ONE (10:01)
[2020-12-07] MEDS ORDERED: SODIUM CHLORIDE 0.9% 100 ML BAG ONE (10:01)
[2020-12-07] MEDS ORDERED: diphenhydrAMINE 25 MG CAP PO PRN (13:17)
[2020-12-07] MEDS ORDERED: BENZOCAINE/MENTHOL SPRAY 1 GM/SPRAY AEROSOL TOPICAL PRN (13:17)
[2020-12-07] MEDS ORDERED: diphenhydrAMINE 50 MG/ML 1 ML VIAL IVP PRN ×2 (13:17)
[2020-12-07] MEDS ORDERED: LANOLIN CREAM 5 GM TUBE TOPICAL PRN (13:17)
[2020-12-07] MEDS ORDERED: diphenhydrAMINE 50 MG CAP PO PRN (13:17)
[2020-12-07] MEDS ORDERED: HYDROCORTISONE 2.5% RECTAL CREAM 30 GM TUBE RECTAL PRN (13:17)
[2020-12-07] MEDS ORDERED: SIMETHICONE 80 MG CHEWABLE PO PRN (13:17)
[2020-12-07] MEDS ORDERED: ZOLPIDEM 5 MG TAB PO PRN (13:17)
--- NOTE | 2020-12-07 13:17 | P.PROBDLV ---
Vaginal Delivery Note - . Vaginal Delivery Note: This is a 25-year-old white female 5 para 2012 EDC 629 when he 1 at 40 and one sevenths weeks' gestation. Patient presents for induction with favorable multiparous cervix and post dates . Group B strep cultures negative. Blood type O+. Rubella status immune. Please see dictated history and physical for details. Artificial amniorrhexis revealed clear fluid. Epidural was placed per her request and oxytocin titrated. She went on to deliver swiftly a liveborn female with scores of 8 and 9 at one and 5 minutes respectively. had a nuchal cord 1 that was reduced. The left or anterior shoulder was delivered easily from underneath the pubic symphysis at which time the oropharynx, nasopharynx, and external nares were all bulb suctioned. Patient officially delivered a liveborn female infant at 1248 hours. Umbilical cord was doubly clamped and ligated, she was handed to waiting nurses for evaluation where scores of 8 and 9 at one and 5 minutes respectively were given. Placenta delivered spontaneously, it was inspected and noted to be intact with trivascular cord at 1251 hours. At this time the uterus is massaged. Careful inspection of the cervix, vagina, perineum, periurethral, and perirectal areas revealed no lacerations or defects. Total estimated blood loss 250 mL's. Patient and her family are allowed to begin the bonding experience in the LDR. weighed 7 lbs. 8 oz. or 3410 g.
[2020-12-07] MEDS: IBUPROFEN 600 MG TAB PO SCH ×2 (13:24→23:36)
[2020-12-07] MEDS: ACETAMINOPHEN TAB 325 MG TAB PO PRN ×2 (15:25→19:44)
[2020-12-07] MEDS: SENNOSIDES-DOCUSATE SODIUM 1 EACH TAB PO SCH (20:31)
[2020-12-08] MEDS: ACETAMINOPHEN TAB 325 MG TAB PO PRN ×2 (02:03→09:14)
[2020-12-08] MEDS: IBUPROFEN 600 MG TAB PO SCH ×3 (05:56→13:41)
[2020-12-08 06:31] LABS: Basophils % (A) 0 %; Eosinophils # (A) 0.1 k/uL (0-0.7); Eosinophils % (A) 1 %; HCT 30.8 % (34.0-46.0); HGB 10.9 gm/dL (11.4-16.0); Lymphocytes # (A) 1.9 k/uL (1.0-4.8); Lymphocytes % (A) 18 %; MCH 30.3 pg (25.0-35.0); MCHC 35.4 g/dL (31.0-37.0); MCV 85.7 fL (80.0-100.0); Mean Platelet Volume 9.5; Monocytes # (A) 0.5 k/uL (0-1.0); Monocytes % (A) 5 %; Neutrophils # (A) 8.2 k/uL (1.3-7.7); Neutrophils % (A) 75 %; Platelet Count 168 k/uL (150-450); RDW 14.2 % (11.5-15.5); WBC 10.9 k/uL (3.8-10.6)
--- NOTE | 2020-12-08 07:55 | P.DS ---
Providers Date of admission: 12/07/20 06:06 Expected date of discharge: 12/08/20 Attending physician: Jacy White Primary care physician: Stated None Hospital Course: This is a 25-year-old white female 5 para 20-2 EDC 12/06/2020 at 40 and one sevenths weeks' gestation. Patient presented for induction for postdates with favorable multiparous cervix. Group B strep cultures negative, blood type O positive, rubella status immune. Please see history and physical for details. Artificial amniorrhexis revealed clear fluid. Oxytocin was started and titrated per hospital protocol. Epidural was placed per her request. She went on to deliver vaginally a liveborn female with scores of 8 and 9 at one and 5 minutes respectively. weighed 3410 g or 7 lbs. 8 oz. Estimated blood loss 150 mL's. Perineal body clean and dry. Please see dictated delivery note for details. This morning the patient is doing well. She is voiding, ambulating, passing flatus without difficulty. Vital signs are stable and she is afebrile. Fundus is firm and in the midline, symmetric and 18 week size. Extremities are negative for edema. infant is doing well. Patient is judged be in excellent condition for discharge home. She will follow-up with me in the office in 6 weeks. I have reminded her no intercourse, tampons or douching. She will use [id number] Advil or Aleve, or Motrin as needed for pain. She will call with any fevers shakes or chills, foul smelling or copious lochia, with the passage of large blood clots, or indeed with any difficulties or concerns. will follow-up with greige goods inspector as recommendations. Assessment: Doing well day #1 Patient Condition at Discharge: Good Plan - Discharge Summary Discharge Rx Participant: No New Discharge Prescriptions: No Action Pnv No.95/Ferrous Fum/Folic AC [ Multivitamin Tablet] 1 tab PO HS Discharge Medication List Pnv No.95/Ferrous Fum/Folic AC [ Multivitamin Tablet] 1 tab PO HS 06/24/18 [History] Follow up Appointment(s)/Referral(s): Jacy White MD [STAFF PHYSICIAN] - 6 Weeks Discharge Disposition: HOME SELF-CARE
[2020-12-08 08:01] VITALS: BP 117/63; PULSE 76; RESP 16; TEMP 98.1
[2020-12-08] MEDS: SENNOSIDES-DOCUSATE SODIUM 1 EACH TAB PO SCH (08:03)
== END 2020-12-08 14:00 | disposition home or self-care (01) | DRG 807 ==
LOC: 4FBP 12-07 06:06
PROVIDERS: ADMIT Obstetrics & Gynecology; ATTEND Obstetrics & Gynecology
PROC: 10E0XZZ Delivery of Products of Conception, External Approach (ICD-10-PCS; principal; 2020-12-07)
DX: O69.81X0 Labor and delivery complicated by cord around neck, without compression, not applicable or unspecified (principal); Z37.0 Single live birth; O48.0 Post-term pregnancy; Z79.82 Long term (current) use of aspirin; Z3A.40 40 weeks gestation of pregnancy
CPT/HCPCS: 85025; 86850; 86900; 86901